=== PATIENT | female | born 1930 | race African-American/Black ===

== ENCOUNTER 2016-08-29 03:18 | Emergency (ER) | payer OTHER ==
[~2016-08-29] VITALS: Ht 162.6 cm; Wt 40.8 kg
[~2016-08-29 03:18] MED LIST: ADVAIR 250-501 EACH INH; ALBUTEROL INH; ALEVE220 M1; ALEVE220 MG PO; BC POWDER PACK1 EAC1; CIPROFLOXACIN500 M1 PO; CITRATE OF MAG296 ML PO; DULCOLAX STOOL100 MG PO; DUONEB 2.5-0.5 M3 ML INH; FLEET ENEMA118 ML RC; HCTZ PO; HYDROCHLOROTHIA25 M2 PO; K-DUR 20 MEQ T20 MEQ PO; LAXATIVE15 M2; LEVAQUIN 500 M500 M1 PO; MECLIZINE HCL12.5 MG PO; NORCO 5-325 TA1 EACH PO; PERCOCET 5-3251 EACH PO; PREDNISONE; PREDNISONE 10 M10 MG PO; PREDNISONE 20 M20 MG PO; PROAIR HFA8.5 GM; PROAIR RESPICL90 MCG IH; PULMICORT0.5 MG/21 INH; PULMICORT0.5 MG/22 INH; QUINU10 PD PO; SINEMET 25-1001 EAC1 PO; VENTOLIN HFA INH8 GM INH; ZPAK PO
[2016-08-29 03:56] LABS: ABSOLUTE NEUTROPHILS 5.3 thou/uL (1.4-8.2); BASOPHILS 0.8 % (0.0-2.0); EOSINOPHILS 2.2 % (0.0-3.0); HEMATOCRIT 30.7 % (37.0-47.0); HEMOGLOBIN 9.6 gm/dL (12.0-15.0); LYMPHOCYTES 16.5 % (24.0-44.0); MANUAL DIFF NO; MCH 27.4 pg (26.0-34.0); MCHC 31.2 g/dL (28.0-37.0); MCV 87.7 fL (80.0-100.0); MONOCYTES 8.5 % (1.0-8.0); PLATELET COUNT 526 thou/uL (150-400); RBC 3.49 mil/uL (4.20-5.00); RDW 16.3 % (10.5-14.5); WBC 7.3 thou/uL (4.0-11.0)
[2016-08-29 03:57] LABS: ANION GAP 10 mmol/L (7-16); BUN 14 mg/dL (7-18); CALCIUM 9.6 mg/dL (8.5-10.1); CHLORIDE 100 mmol/L (98-107); CO2 28 mmol/L (21-32); CREATININE 0.9 mg/dL (0.6-1.0); GLUCOSE 96 mg/dL (74-106); POTASSIUM 4.4 mmol/L (3.5-5.1); SODIUM 138 mmol/L (136-145)
[2016-08-29 04:04] LABS: TROPONIN-I < 0.04 ng/mL (<0.04-0.07)
[2016-08-29 05:16] VITALS: BP 140/76
== END 2016-08-29 05:18 ==
LOC: ER 03:18
PROVIDERS: Emergency Medicine
DX: S09.90XA Unspecified injury of head, initial encounter (principal); G20 Parkinson's disease; E78.5 Hyperlipidemia, unspecified; I10 Essential (primary) hypertension; J45.909 Unspecified asthma, uncomplicated; Z90.49 Acquired absence of other specified parts of digestive tract; W18.30XA Fall on same level, unspecified, initial encounter; Y93.89 Activity, other specified; Y92.89 Other specified places as the place of occurrence of the external cause; Y99.8 Other external cause status